=== PATIENT | female | born 1965 | race Caucasian/White ===

== ENCOUNTER 2020-03-29 10:37 | Outpatient (CLI) | payer OTHER ==
--- NOTE | 2020-04-01 13:22 | Mammography Report ---
BILATERAL DIGITAL SCREENING MAMMOGRAM 3D/2D: 03/29/2020 CLINICAL: Routine screening. Comparison is made to exams dated: 07/24/2015 mammogram and 02/22/2014 mammogram - [facility]. The tissue of both breasts is heterogeneously dense. This may lower the sensitivity of mamm ography. No significant masses, calcifications, or other findings are seen in either breast. There has been no significant interval change. IMPRESSION: NEGATIVE There is no mammographic evidence of malignancy. A 1 year screening mammogram is recommended. This exam was interpreted at Station ID: [id number]. NOTE: For mammograms, a report in lay terms will be sent to the patient. Approximately 15% of breast malignancies will not be visualized mammographically. In the management of a palpable breast mass, a negative mammogram must not discourage biopsy of a clinically suspicious lesion. Electronically Signed By: Yasir Simon M.D. ar/penrad:03/29/2020 11:58:44 ACR BI-RADS Category 1: Negative 3341F PARENCHYMAL PATTERN: (D) - The breast(s) demonstrate(s) heterogeneously dense fibroglandular kiara alicea. BI-RADS CATEGORY: (1) - 1 RECOMMENDATION: (ANNUAL) - Recommend routine annual screening mammography. [id number] 1 year screening LATERALITY: (B)
== END 2020-03-29 10:38 | disposition home or self-care (01) ==
LOC: DI.N 10:37
DX: Z12.31 Encounter for screening mammogram for malignant neoplasm of breast (principal)

== ENCOUNTER 2020-07-30 07:00 | Outpatient (CLI) | payer OTHER ==
[2020-07-30 17:52] LABS: BASOPHILS # (AUTO) 0.1 10^3/uL (0.0-0.1); BASOPHILS % (AUTO) 0.8 %; EOSINOPHILS # (AUTO) 0.2 10^3/uL (0.0-0.7); EOSINOPHILS % (AUTO) 3.1 %; HCT - HEMATOCRIT 41.1 % (37.0-47.0); LYMPHOCYTES # (AUTO) 1.5 10^3/uL (1.5-3.5); LYMPHOCYTES % (AUTO) 21.6 %; MEAN CORPUSCULAR HEMOGLOBIN 31.2 pg (27.0-31.0); MEAN CORPUSCULAR HGB CONC 31.6 g/dL (32.0-36.0); MEAN CORPUSCULAR VOLUME 98.6 fL (81.0-99.0); MEAN PLATELET VOLUME 10.5 fL (7.9-10.8); MONOCYTES # (AUTO) 0.7 10^3/uL (0.0-1.0); NEUTROPHILS # (AUTO) 4.6 10^3/uL (1.5-6.6); NEUTROPHILS % (AUTO) 64.2 %; PLT - PLATELET COUNT 371 10^3/uL (130-450); RED BLOOD COUNT 4.17 10^6/uL (4.20-5.40); WHITE BLOOD COUNT 7.1 x10^3/uL (4.8-10.8)
== END 2020-07-30 23:59 | disposition home or self-care (01) ==
LOC: LAB.N 07:00
PROVIDERS: ATTEND Family Medicine
DX: M79.672 Pain in left foot (principal)
CPT/HCPCS: 36415; 84550; 85025; 85651

== ENCOUNTER 2020-07-30 13:30 | Outpatient (CLI) | payer OTHER ==
--- NOTE | 2020-07-30 16:36 | XRAY Report ---
PROCEDURE: Foot 3 View LT INDICATIONS: LEFT FOOT PAIN TECHNIQUE: 3 views of the foot were acquired. COMPARISON: None FINDINGS: Bones: No fractures or dislocations. No suspicious bony lesions. Soft tissues: No tibiotalar joint effusion. Achilles tendon appears normal. IMPRESSION: Left foot without acute fracture or dislocation. No reactive changes of subacute fracture healing. If there is persistent clinical concern for radiographically occult stress reaction or fracture, cons ider further evaluation with nuclear medicine bone scan or MRI. Reviewed by: Moses Mauro MD on 07/30/2020 4:34 PM PDT Approved by: Moses Mauro MD on 07/30/2020 4:34 PM PDT Station ID: [id number]
--- OUTSIDE RECORDS SUMMARY | 2020-08-06 23:12 | EXTERNAL MEDICAL SUMMARY RPT | Continuity of Care Document ---
:1965 Demographics Phone Unavailable Preferred Language Unknown Marital Status Unknown [employer] Affiliation Unknown Race Unknown Ethnic Group Unknown Author Organization [facility] Address [address] [place] [address] Phone Care Team Providers Name Role Phone MD Unavailable Unavailable MD Unavailable Unavailable Registrar Unavailable Unavailable Problems date description facility [id number] CBC W/Diff/Plt All [id number] FOOT COMPLETE MIN 3 VIEW All [id number] Pain in limb All 05043806 Pain in left foot All 84294321 Sed Rate All 04890933 Uric Acid All 59041666 No current problems or disability - unk nown All Medications date description facility [id number] METHYLPREDNISOLONE All [id number] LEVOTHYROXINE SODIUM All [id number] FLUOXETINE HCL All [id number] SULFAMETHOXAZOLE-TRIMETHOPRIM All [id number] ALBUTEROL SULFATE All [id number] FLUOXETINE HCL All [id number] SULFAMETHOXAZOLE-TRIMETHOPRIM All [id number] ALBUTEROL SULFATE All [id number] METHYLPREDNISOLONE All 82980429 LEVOTHYROXINE SODIUM All [id number] METHYLPREDNISOLONE All [id number] LEVOTHYROXINE SODIUM All [id number] FLUOXETINE HCL All [id number] SULFAMETHOXAZOLE-TRIMETHOPRIM All 81603473 ALBUTEROL SULFATE All 21431218 FLUOXETINE HCL All 65391145 SULFAMETHOXAZOLE-TRIMETHOPRIM All 48319218 ALBUTEROL SULFATE All 04942702 METHYLPREDNISOLONE All [id number] LEVOTHYROXINE SODIUM All Results test status date ordered by attending specimen maria dolores e T unknown [id number] unknown unknown unknown BASOPHILS_AUTO_ unknown [id number] unknown unknown unknown T unknown 11896443 unknown unknown unknown EOSINOPHILS_AUTO_ unknown [id number] unknown unknown unkno wn T unknown 06791040 unknown unknown unknown T unknown [id number] unknown unknown unknown T unknown 28583510 unknown unknown unknown T unknown [id number] unknown unknown unknown LYMPHOCYTES_AUTO_ unknown 10640660 unknown unknown unkno wn T unknown 62673285 unknown unknown unknown T unknown 90660296 unknown unknown unknown T unknown 57675380 unknown unknown unknown T unknown 10618901 unknown unknown unknown MONOCYTES_AUTO_ unknown 61970180 unknown unknown unknown T unknown 63228291 unknown unknown unknown T unknown 30168579 unknown unknown unknown NEUTROPHILS_AUTO_ unknown 15067870 unknown unknown unkno wn T unknown 48811718 unknown unknown unknown T unknown 21058487 unknown unknown unknown T unknown 79837341 unknown unknown unknown T unknown 00244415 unknown unknown unknown T unknown 96091623 unknown unknown unknown red_blood_cell_distrib unknown 39179342 unknown unknown unknown ution_width mean_corpuscular_hemog unknown 09337933 unknown unknown unknown lobin_RBC mean_corpuscular_hemog unknown 36797961 unknown unknown unknown lobin_concentration_rbc neutrophil_count_blood unknown 43533954 unknown unknown unknown lymphocyte_count_blood unknown 80326042 unknown unknown unknown monocyte_count_blood unknown 17146392 unknown unknown un known basophil_count_blood unknown 74438773 unknown unknown un known mean_platelet_volume unknown 29787024 unknown unknown un known eosinophil_count_blood unknown 90346711 unknown unknown unknown Urate_Mass_volume_in_S unknown 88603616 unknown unknown unknown erum_or_Plasma mean_corpuscular_volum unknown 64301491 unknown unknown unknown e_RBC Erythrocyte_sedimentat unknown 15991427 unknown unknown unknown ion_rate_by_[place]_ method Hematocrit_Volume_Frac unknown 33422686 unknown unknown unknown tion_of_Blood_by_Automa ted_count uric_acid_serum unknown 38404528 unknown unknown unknown erythrocyte_sedimentat unknown 91923701 unknown unknown unknown ion_rate hematocrit_blood unknown 00606844 unknown unknown unknow n hemoglobin_blood unknown 66680785 unknown unknown unknow n platelet_count unknown 23712709 unknown unknown unknown Leukocytes_volume_in_B unknown 46132014 unknown unknown unknown lood_by_Automated_count erythrocyte_RBC_count unknown 85630094 unknown unknown u nknown leukocyte_count_blood unknown 70353010 unknown unknown u nknown Basophils_volume_in_Bl unknown 92243619 unknown unknown unknown ood_by_Manual_count eosinophil_count_blood unknown 59245878 unknown unknown unknown Hemoglobin_Mass_volume unknown 89327700 unknown unknown unknown _in_Blood lymphocyte_count_blood unknown 64632153 unknown unknown unknown monocyte_count_blood unknown 56358740 unknown unknown un known neutrophil_count_blood unknown 94592579 unknown unknown unknown Platelet_mean_volume_E unknown 72401449 unknown unknown unknown ntitic_volume_in_Blood_ by_Rees-Bill Platelets_volume_in_Bl unknown 97456178 unknown unknown unknown ood_by_Automated_count MCH_Entitic_mass_by_Au unknown 90568693 unknown unknown unknown tomated_count MCV_Entitic_volume_by_ unknown 34764629 unknown unknown unknown Automated_count Erythrocyte_distributi unknown 20200730 unknown unknown unknown on_width_Ratio_by_Autom ated_count Erythrocytes_volume_in unknown 20200730 unknown unknown unknown _Blood_by_Automated_cou nt facility observation status value reference units lab abnor mal line range code notes All T unknown 0.1 10 unknown BASO_ unknown unkn own 3/UL AUTO_ All BASOPHILS_AUT unknown 0.1 10 unknown BA_ unknow n unknown O_ 3/UL All T unknown 0.2 10 unknown EOS_A unknown unkn own 3/UL UTO_ All EOSINOPHILS_A unknown 0.2 10 unknown EO_ unknow n unknown UTO_ 3/UL All T unknown 11 unknown mm/h ESR unknown unkn own All T unknown 41.1 unknown % HCT unknown unkn own All T unknown 13.0 unknown g/dL HGB unknown unkn own All T unknown 1.5 10 unknown LYMPH unknown unkn own 3/UL _AUTO_ All LYMPHOCYTES_A unknown 1.5 10 unknown LY_ unknow n unknown UTO_ 3/UL All T unknown 31.2 unknown pg MCH unknown unkn own All T unknown 31.6 unknown g/dL MCHC unknown unkn own All T unknown 98.6 unknown fL MCV unknown unkn own All T unknown 0.7 10 unknown MONO_ unknown unkn own 3/UL AUTO_ All MONOCYTES_AUT unknown 0.7 10 unknown MO_ unknow n unknown O_ 3/UL All T unknown 10.5 unknown fL MPV unknown unkn own All T unknown 4.6 10 unknown NEUT_ unknown unkn own 3/UL AUTO_ All NEUTROPHILS_A unknown 4.6 10 unknown NE_ unknow n unknown UTO_ 3/UL All T unknown 371 10 unknown PLT unknown unkn own 3/UL All T unknown 4.17 unknown RBC unknown unkn own 10 6/UL All T unknown 13.0 unknown % RDW unknown unkn own All T unknown 5.0 unknown mg/dL URIC unknown unkn own All T unknown 7.1 unknown WBC unknown unkn own X10 3/UL All red_blood_cel unknown 13.0 unknown % _1030 unknow n unknown l_distribution _width All mean_corpuscu unknown 31.2 unknown pg _1031 unknow n unknown lar_hemoglobin _RBC All mean_corpuscu unknown 31.6 unknown g/dL _1702 unknow n unknown lar_hemoglobin 9 _concentration _rbc All neutrophil_co unknown 4.6 10 unknown _2418 unknow n unknown unt_blood 3/UL All lymphocyte_co unknown 1.5 10 unknown _2420 unknow n unknown unt_blood 3/UL All monocyte_coun unknown 0.7 10 unknown _2422 unknow n unknown t_blood 3/UL All basophil_coun unknown 0.1 10 unknown _2427 unknow n unknown t_blood 3/UL All mean_platelet unknown 10.5 unknown fL _2784 unknow n unknown _volume All eosinophil_co unknown 0.2 10 unknown _285 unknow n unknown unt_blood 3/UL All Urate_Mass_vo unknown 5.0 unknown mg/dL _3084 unknow n unknown lume_in_Serum_ -1 or_Plasma All mean_corpuscu unknown 98.6 unknown fL _315 unknow n unknown lar_volume_RBC All Erythrocyte_s unknown 11 unknown mm/h _4537 unknow n unknown edimentation_r -7 ate_by_Westerg ren_method All Hematocrit_Vo unknown 41.1 unknown % _4544 unknow n unknown lume_Fraction_ -3 of_Blood_by_Au tomated_count All uric_acid_ser unknown 5.0 unknown mg/dL _46 unknow n unknown um All erythrocyte_s unknown 11 unknown mm/h _63 unknow n unknown edimentation_r ate All hematocrit_bl unknown 41.1 unknown % _64 unknow n unknown ood All hemoglobin_bl unknown 13.0 unknown g/dL _65 unknow n unknown ood All platelet_coun unknown 371 10 unknown _66 unknow n unknown t 3/UL All Leukocytes_vo unknown 7.1 unknown _6690 unknow n unknown lume_in_Blood_ X10 -2 by_Automated_c 3/UL ount All erythrocyte_R unknown 4.17 unknown _67 unknow n unknown BC_count 10 6/UL All leukocyte_cou unknown 7.1 unknown _68 unknow n unknown nt_blood X10 3/UL All Basophils_vol unknown 0.1 10 unknown _705- unknow n unknown ume_in_Blood_b 3/UL 4 y_Manual_count All eosinophil_co unknown 0.2 10 unknown _712- unknow n unknown unt_blood 3/UL 0 All Hemoglobin_Ma unknown 13.0 unknown g/dL _718- unknow n unknown ss_volume_in_B 7 lood All lymphocyte_co unknown 1.5 10 unknown _732- unknow n unknown unt_blood 3/UL 8 All monocyte_coun unknown 0.7 10 unknown _743- unknow n unknown t_blood 3/UL 5 All neutrophil_co unknown 4.6 10 unknown _752- unknow n unknown unt_blood 3/UL 6 All Platelet_mean unknown 10.5 unknown fL _776- unknow n unknown _volume_Entiti 5 c_volume_in_Bl ood_by_Rees-Ec ker All Platelets_vol unknown 371 10 unknown _777- unknow n unknown ume_in_Blood_b 3/UL 3 y_Automated_co unt All MCH_Entitic_m unknown 31.2 unknown pg _785- unknow n unknown ass_by_Automat 6 ed_count All MCV_Entitic_v unknown 98.6 unknown fL _787- unknow n unknown olume_by_Autom 2 ated_count All Erythrocyte_d unknown 13.0 unknown % _788- unknow n unknown istribution_wi 0 dth_Ratio_by_A utomated_count All Erythrocytes_ unknown 4.17 unknown _789- unknow n unknown volume_in_Bloo 10 6/UL 8 d_by_Automated _count Vital Signs date measurement value source 20200730 BMI 34.58 kg/m2 20200730 BP_diastolic 86 mm[Hg] 20200730 BP_systolic 127 mm[Hg] 20200730 heart_rate 89 /min 20200730 height_metric 172.72 cm 20200730 height_standard 68 in 20200730 respiration_rate 16 /min 20200730 temperature_metric 35.56 C 20200730 temperature_standard 96 F 20200730 weight_metric 102.78 kg 20200730 weight_standard 226.6 lb 20200730 BMI 34.58 kg/m2 20200730 BP_diastolic 86 mm[Hg] 20200730 BP_systolic 127 mm[Hg] 20200730 heart_rate 89 /min 20200730 height_metric 172.72 cm 20200730 height_standard 68 in 20200730 respiration_rate 16 /min 20200730 temperature_metric 35.56 C 20200730 temperature_standard 96 F 20200730 weight_metric 102.78 kg 20200730 weight_standard 226.6 lb Social History date description facility [id number]
== END 2020-07-30 23:59 | disposition home or self-care (01) ==
LOC: DI.N 13:30
PROVIDERS: ATTEND Family Medicine
DX: M79.672 Pain in left foot (principal)

== ENCOUNTER 2023-07-01 12:32 | Outpatient (CLI) | payer OTHER | END 2023-07-01 12:33 | disposition home or self-care (01) | LOC: DI 12:32 | PROVIDERS: ATTEND Nurse Practitioner Family | DX: I07.1 Rheumatic tricuspid insufficiency (principal); R07.9 Chest pain, unspecified | CPT/HCPCS: 93307 ==